=== PATIENT | female | born 1975 | race Caucasian/White ===

== ENCOUNTER 2023-11-08 09:57 | Outpatient (CLI) | payer OTHER, SELFPAY ==
--- NOTE | ~2023-11-08 | US_ITS ---
EXAMINATION: US soft tissue UE RT DATE: 11/08/2023 10:14 INDICATION: Right shoulder lump. TECHNIQUE: Multiple grayscale and Doppler ultrasound images of the right upper extremity were obtaine d. COMPARISON: None FINDINGS: In the patient's area of concern, there is a 6 mm hypoechoic subcutaneous mass. IMPRESSION: 1. 6 mm subcutaneous mass in right shoulder. This finding is nonspecific and may be inflammation or a benign mass such as peripheral nerve sheath tumor or hemangioma. Malignancy would be unusual but can not be excluded. Reviewed, dictated and finalized at location A. IMPRESSION: 1. 6 mm subcutaneous mass in right shoulder. This finding is nonspecific and ma y be inflammation or a benign mass such as peripheral nerve sheath tumor or hem angioma. Malignancy would be unusual but cannot be excluded.
== END 2023-11-08 09:58 ==
LOC: GOSHIMG 09:58
PROVIDERS: PCP Family Medicine; Visit Provider Physician Assistant
DX: R22.31 Localized swelling, mass and lump, right upper limb (principal)
CPT/HCPCS: 76882

== ENCOUNTER → 2024-02-16 12:04 | Outpatient (REF) | payer OTHER, SELFPAY | LOC: ANHLAB 12:04 | PROVIDERS: PCP Family Medicine; Visit Provider Plastic Surgery | DX: L72.3 Sebaceous cyst (principal); D23.5 Other benign neoplasm of skin of trunk | CPT/HCPCS: 88305 ==